=== PATIENT | female | born 1945 | race Caucasian/White ===

== ENCOUNTER → 2017-12-13 11:44 | Outpatient (CLI) | payer MEDICARE ==
[~2017-12-13 11:44] MED LIST: BISOPROLOL-HCT1 EAC1 PO; GABAPENTIN100 MG PO; LEVOTHYROXINE175 MCG PO; LEVOXYL100 MCG PO; MAG-OX 400 MG400 MG PO; NORVASC2.5 MG PO; PLAVIX75 MG PO; SOMA350 MG PO; TRAZODONE HCL50 MG PO; XANAX0.25 MG PO
[2017-12-13 13:17] LABS: ANION GAP 15.3 mmol/L (8-16); CALCIUM 8.9 mg/dL (8.5-10.1); CARBON DIOXIDE 24.3 mmol/L (21.0-32.0); CREATININE - SERUM 1.1 mg/dL (0.6-1.3); POTASSIUM - SERUM 4.6 mmol/L (3.5-5.1)
[2018-01-02 12:33] VITALS: BMI 13.3
== END | disposition home or self-care (01) ==
LOC: D.LABREF 11:44
PROVIDERS: Family Medicine
DX: I87.2 Venous insufficiency (chronic) (peripheral) (principal)

== ENCOUNTER 2018-01-01 17:05 | Inpatient (IN) | payer MEDICARE ==
[~2018-01-01] VITALS: Ht 172.7 cm; Wt 39.9 kg
--- NOTE | ~2018-01-01 | HP ---
PATIENT: LOBO BARRY MEDICAL RECORD: [id number] ACCOUNT: [id number] LOCATION:[id number] : 43 ADMISSION DATE: 01/01/18 HISTORY AND PHYSICAL EXAMINATION REASON FOR ADMISSION: Diarrhea, 4-pound weight loss, and fatigue. HISTORY OF PRESENT ILLNESS: The patient is a 72-year-old female with history of cachexia, CAD, and COPD. She noted onset of diarrhea of 6-8 stools per day, very loose and watery 2 weeks ago. In the interim, she has lost approximately 4-1/2 pounds. Today, she developed some abdominal pain and nausea associated with it. She had stopped her antihypertensives and Lasix thinking that would dehydrate her. She is now very lightheaded and fatigued. She was unable to drive and her son brought her to our clinic. She denies any recent fever, congestion of well water, or any other family members ill. She denies melanotic stool. 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 FAMILY HISTORY: Father had heart disease. Mother had cancer. SOCIAL HISTORY: She smoked half pack of cigarettes a day for 40 years, she has quit in the last year or two, not using smokeless tobacco. She does not use alcohol. Lives alone. Her son helps her with her ADLs and meals. Her from aneurysm and heart disease, otherwise as above. MEDICATIONS: Ziac one daily, Lasix 20 mg p.o. q.a.m. p.r.n. edema, alprazolam 0.25 mg t.i.d. p.r.n. anxiety, hydrocodone 10/325 one q. 6 hours, clopidogrel 75 mg daily, trazodone 50 mg one to two at bedtime for sleep, Soma 350 mg b.i.d., diclofenac sodium 50 mg p.o. b.i.d. after meals, amlodipine 2.5 mg daily, latanoprost 0.005% eyedrops one drop both eyes b.i.d., Restasis one drop both eyes b.i.d. ALLERGIES: ACTONEL, FOSAMAX CAUSING GI UPSET, COZAAR, AND CIPRO. REVIEW OF SYSTEMS: GENERAL: She has had continued weight loss over the last few years due to poor appetite. She has lost 4-1/2 pounds in the last 3 weeks. She is generally fatigued. HEENT: She has chronic loss of vision in her left eye and poor vision in her right eye. RESPIRATORY: Shortness of breath on exertion. No cough or sputum production. CARDIAC: No chest pain. Claudication is positive in the right leg. Mild edema HISTORY AND PHYSICAL [id number] LOBO BARRY in her ankles as well. No palpitations. RESPIRATORY: Shortness of breath on exertion and nonproductive cough recently. GASTROINTESTINAL: She has had nausea today but no vomiting. She has had diffuse abdominal discomfort, 4/10. She has had 6-8 stools daily for the last 14 days. Denies any melena, but has difficulty seeing her stool. 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 PSYCHIATRIC: Admits to chronic depressed mood and also suicidal thoughts. PHYSICAL EXAMINATION: VITAL SIGNS: Her sat is 97% on room air, blood pressure 140/82, heart rate is 100 and regular, respirations are 18. Weight 89 pounds, she was 83.4 three weeks ago. Height is 5 feet 9 inches. GENERAL: The patient is chronically ill appearing. HEENT: Normocephalic. Her left eye has no vision and is scarred. Right eye has minimal vision. Oropharynx shows dry mucous membranes. NECK: Supple. CHEST: Clear. Distant breath sounds and increased dorsal kyphosis. HEART: Regular rate. ABDOMEN: Soft and minimally tender in the epigastrium. Bowel sounds are active and hyperactive. There is diffuse tenderness in the lower abdomen. No rebound is noted. No masses are felt. EXTREMITIES: She has muscle wasting in upper and lower extremities. She has a wound dressing over her right great toe with a dime-sized decubitus. There is no odor noted. NEUROLOGIC: She is oriented to person, place, and time. Cranial nerves are grossly intact. Gait is unremarkable. She has diffuse muscle atrophy and weakness. LABORATORY DATA: Her BUN is elevated at 28, creatinine is 1.2, potassium is 3.4. CBC is pending. ASSESSMENT: 1. Diarrhea, recurrent. 2. Azotemia. 3. Hypokalemia. 4. Cachexia. 5. COPD. PLAN: The patient will be admitted for IV fluids, electrolyte replacement, and GI workup. TRANSINT:[id number] Voice Confirmation ID: [id number] DOCUMENT ID: [id number] YOLANDA FLOWERS MD at 0952 CC: [id number] DICTATION DATE: 01/01/18 1646 [employer] DESIGNER: 01/01/18 1802 DIS IN 01/03/18 [id number] [place] [address]
[2018-01-01 19:47] VITALS: BP 162/48
[2018-01-01 23:42] VITALS: BP 115/40
[2018-01-02] VITALS (7 sets, daily range): BP systolic 124–162; BP diastolic 45–65; Ht 172.7 cm; Wt 39.9 kg
[2018-01-02] MEDS ORDERED: PLAVIX75 MG PO (05:43)
[2018-01-02] MEDS ORDERED: LEVOTHYROXINE175 MCG PO (05:43)
[2018-01-02] MEDS ORDERED: XANAX0.25 MG PO (05:45)
[2018-01-02] MEDS ORDERED: NORVASC2.5 MG PO (05:46)
[2018-01-02] MEDS ORDERED: TRAZODONE HCL50 MG PO (05:46)
[2018-01-02] MEDS ORDERED: GABAPENTIN100 MG PO (05:47)
[2018-01-02] MEDS ORDERED: SOMA350 MG PO (05:48)
[2018-01-02] MEDS ORDERED: BISOPROLOL-HCT1 EAC1 PO (05:49)
[2018-01-02 08:19] LABS: ANION GAP 10.4 mmol/L (8-16); CALCIUM 8.3 mg/dL (8.5-10.1); CARBON DIOXIDE 24.9 mmol/L (21.0-32.0); CREATININE - SERUM 0.8 mg/dL (0.6-1.3); POTASSIUM - SERUM 3.3 mmol/L (3.5-5.1); T4 THYROXIN - FREE 0.94 ng/dL (0.76-1.46); THYROID STIMULATING HORMONE 23.95 uIU/mL (0.36-3.74)
[2018-01-03 03:42] VITALS: BP 113/56
[2018-01-03 06:05] LABS: CALCIUM 7.9 mg/dL (8.5-10.1); CARBON DIOXIDE 23.3 mmol/L (21.0-32.0); CHLORIDE - SERUM 105 mmol/L (98-107); CREATININE - SERUM 0.7 mg/dL (0.6-1.3); GLUCOSE 96 mg/dL (74-106); MAGNESIUM - SERUM 1.5 mg/dL (1.8-2.4); PHOSPHOROUS 2.3 mg/dL (2.5-4.9); SODIUM 137 mmol/L (136-145); eGFR NON AFRICAN AMERICAN 87 mL/min (90-120)
[2018-01-03 06:13] LABS: CALC OSMOLALITY 272 mosm/kg (275-300); POTASSIUM - SERUM 4.7 mmol/L (3.5-5.1); UREA NITROGEN 9 mg/dL (7-18)
[2018-01-03 07:54] VITALS: BP 123/57
[2018-01-03 12:18] VITALS: BP 126/44
[2018-01-03 15:44] VITALS: BP 134/43
[2018-01-03] MEDS ORDERED: MAG-OX 400 MG400 MG PO (17:00)
[2018-01-03] MEDS ORDERED: LEVOXYL100 MCG PO (17:00)
== END 2018-01-03 17:44 | disposition home or self-care (01) | DRG 640 ==
LOC: OBSVTIME → UNDOADMIN 17:05 → D.SDCHOLD 17:05 → UNDOADMOB 17:05 → OBSVTIME 17:07 → D.MS 18:51
PROVIDERS: Family Medicine
DX: E86.0 Dehydration (principal); E43 Unspecified severe protein-calorie malnutrition; Z68.1 Body mass index [BMI] 19.9 or less, adult; R19.7 Diarrhea, unspecified; I25.10 Atherosclerotic heart disease of native coronary artery without angina pectoris; J44.9 Chronic obstructive pulmonary disease, unspecified; I73.9 Peripheral vascular disease, unspecified; L89.899 Pressure ulcer of other site, unspecified stage; E87.6 Hypokalemia; E83.42 Hypomagnesemia; E03.9 Hypothyroidism, unspecified; Z87.891 Personal history of nicotine dependence; F41.9 Anxiety disorder, unspecified; F32.9 Major depressive disorder, single episode, unspecified; Z86.718 Personal history of other venous thrombosis and embolism

== ENCOUNTER → 2018-02-13 11:26 | Outpatient (CLI) | payer MEDICARE ==
[2018-01-02 12:33] VITALS: BMI 13.3
[2018-02-23 03:11] LABS: OVA + PARASITE EXAM Final report (())
== END | disposition home or self-care (01) ==
LOC: D.LAB 11:26
PROVIDERS: Family Medicine
DX: R19.7 Diarrhea, unspecified (principal)